=== PATIENT | female | born 1995 | race Caucasian/White ===

== ENCOUNTER → 2022-02-17 | Outpatient (CLI) | payer BC ==
[2022-02-17 11:52] LABS: BASO % 0.4 % (0.0-1.0); EOS # 0.1 10^3/uL (0.0-0.5); EOS % 1.1 % (0.0-3.0); HEMATOCRIT 45.2 % (36.0-47.0); HEMOGLOBIN 14.7 g/dl (12.0-15.5); LYMPH # 2.6 10^3/uL (1.5-5.0); LYMPH % 35.1 % (24.0-44.0); MEAN CORPUSCULAR HEMOGLOBIN 28.3 pg (27.0-33.0); MEAN CORPUSCULAR HGB CONC 32.5 g/dl (32.0-36.5); MEAN CORPUSCULAR VOLUME 87.1 fl (80.0-96.0); MONO # 0.4 10^3/uL (0.0-0.8); MONO % 5.2 % (2.0-8.0); NEUTROPHILS # 4.2 10^3/uL (1.5-8.5); NEUTROPHILS % 57.9 % (36.0-66.0); PLATELET COUNT, AUTOMATED 240 10^3/uL (150-450); RED BLOOD COUNT 5.19 10^6/uL (4.00-5.40); WHITE BLOOD COUNT 7.3 10^3/uL (4.0-10.0)
[2022-02-17 12:01] LABS: HEMOGLOBIN A1c 4.8 % (4.0-6.0)
[2022-02-17 12:11] LABS: ALBUMIN 4.4 G/DL (3.2-5.2); ALKALINE PHOSPHATASE 107 U/L (46-116); ALT/SGPT 16 U/L (7.0-40); AST/SGOT 18 U/L (<34); BILIRUBIN,TOTAL 1.2 MG/DL (0.3-1.2); BLOOD UREA NITROGEN 15 MG/DL (9-23); CALCIUM LEVEL 9.7 MG/DL (8.5-10.1); CARBON DIOXIDE LEVEL 26 MMOL/L (20-31); CHLORIDE LEVEL 103 MMOL/L (98-107); CREATININE FOR GFR 0.75 MG/DL (0.55-1.30); GLOMERULAR FILTRATION RATE > 60.0 (>60); GLUCOSE, FASTING 79 MG/DL (60-100); POTASSIUM SERUM 4.2 MMOL/L (3.5-5.1); SODIUM LEVEL 137 MMOL/L (136-145); TOTAL PROTEIN 8.2 G/DL (5.7-8.2)
[2022-02-17 12:14] LABS: FREE T4 1.27 NG/DL (0.89-1.76); PROLACTIN 3.47 NG/ML; THYROID STIMULATING HORMONE 1.951 uIU/ML (0.55-4.78)
== END ==
LOC: M LAB 10:53
PROVIDERS: ATTEND Registered Nurse
DX: E66.9 Obesity, unspecified (principal)

== ENCOUNTER → 2022-02-23 | Outpatient (REF) | payer BC ==
[2022-02-23 17:24] LABS: GC DNA AMPLIFICATION NEGATIVE (NEGATIVE)
== END ==
LOC: M LAB REF 14:59
PROVIDERS: ATTEND Registered Nurse
DX: Z01.419 Encounter for gynecological examination (general) (routine) without abnormal findings (principal); Z11.3 Encounter for screening for infections with a predominantly sexual mode of transmission; R87.615 Unsatisfactory cytologic smear of cervix
CPT/HCPCS: 87624; 87661; 87810; 87850; G0123

== ENCOUNTER → 2022-11-17 | Outpatient (CLI) | payer BC ==
[2022-11-17 14:14] LABS: HEMATOCRIT 43.3 % (36.0-47.0); HEMOGLOBIN 14.4 g/dl (12.0-15.5); MEAN CORPUSCULAR HEMOGLOBIN 28.3 pg (27.0-33.0); MEAN CORPUSCULAR HGB CONC 33.3 g/dl (32.0-36.5); MEAN CORPUSCULAR VOLUME 85.2 fl (80.0-96.0); PLATELET COUNT, AUTOMATED 230 10^3/uL (150-450); RED BLOOD COUNT 5.08 10^6/uL (4.00-5.40)
[2022-11-17 15:11] LABS: HIV 1&2 SCREEN NEGATIVE (NEGATIVE)
[2022-11-17 15:19] LABS: HEPATITIS C VIRUS ABY INDEX 0.09 INDEX (<0.8)
[2022-11-17 15:26] LABS: GC DNA AMPLIFICATION NEGATIVE (NEGATIVE)
== END ==
LOC: M PLALAB 09:29
PROVIDERS: ATTEND Specialist
DX: Z34.81 Encounter for supervision of other normal pregnancy, first trimester (principal); Z3A.00 Weeks of gestation of pregnancy not specified

== ENCOUNTER → 2022-12-13 | Outpatient (CLI) | payer BC | LOC: M PLALAB 11:04 | PROVIDERS: ATTEND Obstetrics & Gynecology | DX: Z34.81 Encounter for supervision of other normal pregnancy, first trimester (principal) ==

== ENCOUNTER → 2023-01-28 | Outpatient (CLI) | payer BC | LOC: M WHC 12:25 | PROVIDERS: ATTEND Specialist | DX: Z34.02 Encounter for supervision of normal first pregnancy, second trimester (principal) ==

== ENCOUNTER → 2023-03-07 | Outpatient (CLI) | payer BC | LOC: M WHC 07:10 | PROVIDERS: ATTEND Obstetrics & Gynecology | DX: Z36.2 Encounter for other antenatal screening follow-up (principal) ==

== ENCOUNTER → 2023-03-15 | Outpatient (CLI) | payer BC ==
[2023-03-15 14:22] LABS: HEMATOCRIT 38.5 % (36.0-47.0); HEMOGLOBIN 12.5 g/dl (12.0-15.5); MEAN CORPUSCULAR HEMOGLOBIN 29.1 pg (27.0-33.0); MEAN CORPUSCULAR HGB CONC 32.5 g/dl (32.0-36.5); MEAN CORPUSCULAR VOLUME 89.5 fl (80.0-96.0); PLATELET COUNT, AUTOMATED 199 10^3/uL (150-450); WHITE BLOOD COUNT 11.8 10^3/uL (4.0-10.0)
== END ==
LOC: M PLALAB 08:37
PROVIDERS: ATTEND Advanced Practice Midwife
DX: Z34.02 Encounter for supervision of normal first pregnancy, second trimester (principal); Z3A.00 Weeks of gestation of pregnancy not specified
CPT/HCPCS: 36415; 82950; 85027; 86850; 87490; 87590; J2790

== ENCOUNTER → 2023-05-25 | Outpatient (REF) | payer BC | LOC: M PLALAB 08:53 | PROVIDERS: ATTEND Advanced Practice Midwife | DX: Z34.03 Encounter for supervision of normal first pregnancy, third trimester (principal) ==

== ENCOUNTER 2023-06-15 14:15 | Outpatient (CLI) | payer BC ==
[~2023-06-15] VITALS: Ht 157.5 cm; Wt 100.6 kg
[2023-06-15] VITALS (7 sets, daily range): BP systolic 117–125; BP diastolic 63–66; O2SAT 98
[2023-06-15] MEDS ORDERED: PRENTAB9 PO (14:28)
[2023-06-15] MEDS ORDERED: ACET-907 PO (14:28)
[2023-06-15] MEDS ORDERED: HOME MED LIST COMPLETE! XX SCH (14:30)
[2023-06-15 15:33] LABS: HEMATOCRIT 36.4 % (36.0-47.0); HEMOGLOBIN 12.1 g/dl (12.0-15.5); MEAN CORPUSCULAR HEMOGLOBIN 28.5 pg (27.0-33.0); MEAN CORPUSCULAR HGB CONC 33.2 g/dl (32.0-36.5); MEAN CORPUSCULAR VOLUME 85.8 fl (80.0-96.0); PLATELET COUNT, AUTOMATED 165 10^3/uL (150-450); RED BLOOD COUNT 4.24 10^6/uL (4.00-5.40); WHITE BLOOD COUNT 10.8 10^3/uL (4.0-10.0)
[2023-06-15 15:43] LABS: TOTAL PROTEIN,RANDOM URINE 14.8 MG/DL (0.0-14.0)
[2023-06-15 15:45] LABS: URIC ACID 4.5 MG/DL (3.1-7.8)
[2023-06-15 15:47] LABS: LDH LACTATE DEHYDROGENASE 157 U/L (120-246)
[2023-06-15 15:48] LABS: ALT/SGPT 97 U/L (7.0-40); AST/SGOT 37 U/L (<34); BILIRUBIN,TOTAL 0.7 MG/DL (0.3-1.2); CREATININE FOR GFR 0.53 MG/DL (0.55-1.30); GLOMERULAR FILTRATION RATE > 60.0 (>60)
== END 2023-06-15 16:47 | disposition home or self-care (01) ==
LOC: M LDO 14:15
PROVIDERS: ATTEND Obstetrics & Gynecology
DX: O16.3 Unspecified maternal hypertension, third trimester (principal); Z67.11 Type A blood, Rh negative; Z3A.38 38 weeks gestation of pregnancy
CPT/HCPCS: 36415; 59025; 76815; 82247; 82570; 83615; 84156; 84450; 84460; 84550; 85027; G0463

== ENCOUNTER 2023-06-18 10:47 | Outpatient (CLI) | payer BC ==
[~2023-06-18] VITALS: Ht 157.5 cm; Wt 99.7 kg
[~2023-06-18 10:47] MED LIST: ACET-907 PO; PRENTAB9 PO
[2023-06-18 11:09] VITALS: BP 132/73; O2SAT 97
[2023-06-18] MEDS ORDERED: HOME MED LIST COMPLETE! XX SCH (11:15)
[2023-06-18 11:24] VITALS: BP 125/71
[2023-06-18 11:26] VITALS: BP 126/73
[2023-06-18 11:39] VITALS: BP 123/67
[2023-06-18 11:48] LABS: HEMATOCRIT 38.2 % (36.0-47.0); HEMOGLOBIN 12.9 g/dl (12.0-15.5); MEAN CORPUSCULAR HEMOGLOBIN 28.7 pg (27.0-33.0); MEAN CORPUSCULAR HGB CONC 33.8 g/dl (32.0-36.5); MEAN CORPUSCULAR VOLUME 84.9 fl (80.0-96.0); PLATELET COUNT, AUTOMATED 166 10^3/uL (150-450)
[2023-06-18 11:54] VITALS: BP 122/71
[2023-06-18 12:09] VITALS: BP 121/71
[2023-06-18 12:22] LABS: ALBUMIN 2.6 G/DL (3.2-5.2); ALKALINE PHOSPHATASE 220 U/L (46-116); ALT/SGPT 124 U/L (7.0-40); AST/SGOT 58 U/L (<34); BLOOD UREA NITROGEN 8 MG/DL (9-23); CALCIUM LEVEL 8.9 MG/DL (8.5-10.1); CARBON DIOXIDE LEVEL 22 MMOL/L (20-31); CHLORIDE LEVEL 106 MMOL/L (98-107); CREATININE FOR GFR 0.53 MG/DL (0.55-1.30); GLOMERULAR FILTRATION RATE > 60.0 (>60); GLUCOSE, FASTING 69 MG/DL (60-100); SODIUM LEVEL 136 MMOL/L (136-145); TOTAL PROTEIN 6.4 G/DL (5.7-8.2)
[2023-06-18 12:33] LABS: CREATININE,RANDOM URINE 18.7 MG/DL; TOTAL PROTEIN,RANDOM URINE < 6.0 MG/DL (0.0-14.0)
[2023-06-18 13:16] LABS: INR 0.99; PROTHROMBIN TIME 12.8 SECONDS (12.5-14.5)
== END 2023-06-18 15:39 | disposition home or self-care (01) ==
LOC: M LDO 10:47
PROVIDERS: ATTEND Obstetrics & Gynecology
DX: O16.3 Unspecified maternal hypertension, third trimester (principal); O36.0139 Maternal care for anti-D [Rh] antibodies, third trimester, other fetus; O26.613 Liver and biliary tract disorders in pregnancy, third trimester; K76.0 Fatty (change of) liver, not elsewhere classified; Z3A.39 39 weeks gestation of pregnancy
CPT/HCPCS: 36415; 59025; 76705; 80053; 82570; 84156; 85027; 85610; G0463

== ENCOUNTER → 2023-06-20 | Outpatient (CLI) | payer BC ==
[2023-06-20 11:20] LABS: HEMATOCRIT 40.1 % (36.0-47.0); HEMOGLOBIN 12.9 g/dl (12.0-15.5); MEAN CORPUSCULAR HEMOGLOBIN 28.5 pg (27.0-33.0); MEAN CORPUSCULAR HGB CONC 32.2 g/dl (32.0-36.5); MEAN CORPUSCULAR VOLUME 88.5 fl (80.0-96.0); PLATELET COUNT, AUTOMATED 165 10^3/uL (150-450); RED BLOOD COUNT 4.53 10^6/uL (4.00-5.40)
[2023-06-20 11:47] LABS: ALBUMIN 2.6 G/DL (3.2-5.2); ALKALINE PHOSPHATASE 217 U/L (46-116); ALT/SGPT 135 U/L (7.0-40); AST/SGOT 42 U/L (<34); BILIRUBIN,TOTAL 0.9 MG/DL (0.3-1.2); BLOOD UREA NITROGEN 10 MG/DL (9-23); CALCIUM LEVEL 8.7 MG/DL (8.5-10.1); CARBON DIOXIDE LEVEL 26 MMOL/L (20-31); CHLORIDE LEVEL 105 MMOL/L (98-107); CREATININE FOR GFR 0.72 MG/DL (0.55-1.30); GLOMERULAR FILTRATION RATE > 60.0 (>60); GLUCOSE, FASTING 71 MG/DL (60-100); POTASSIUM SERUM 4.3 MMOL/L (3.5-5.1); SODIUM LEVEL 137 MMOL/L (136-145); TOTAL PROTEIN 6.4 G/DL (5.7-8.2); TOTAL PROTEIN,RANDOM URINE 21.2 MG/DL (0.0-14.0)
[2023-06-20 11:52] LABS: CREATININE,RANDOM URINE 200.1 MG/DL
== END ==
LOC: M PLALAB 08:15
PROVIDERS: ATTEND Obstetrics & Gynecology
DX: K76.0 Fatty (change of) liver, not elsewhere classified (principal)

== ENCOUNTER 2023-06-30 21:40 | Inpatient (IN) | payer BC ==
[~2023-06-30] VITALS: Ht 157.5 cm; Wt 100.6 kg
[2023-06-30 21:58] VITALS: BP 131/73
[2023-06-30] MEDS ORDERED: LIDOCAINE 1% MDV 20ML VIAL INFIL PRN (22:40)
[2023-06-30] MEDS ORDERED: OXYTOCIN DRIP 30 UNITS in IV 1 EA IV PRN (22:40)
[2023-06-30] MEDS ORDERED: HOME MED LIST COMPLETE! XX SCH (23:10)
[2023-06-30 23:15] LABS: HEMATOCRIT 37.7 % (36.0-47.0); HEMOGLOBIN 12.6 g/dl (12.0-15.5); MEAN CORPUSCULAR HEMOGLOBIN 28.6 pg (27.0-33.0); MEAN CORPUSCULAR HGB CONC 33.4 g/dl (32.0-36.5); MEAN CORPUSCULAR VOLUME 85.7 fl (80.0-96.0); PLATELET COUNT, AUTOMATED 163 10^3/uL (150-450); WHITE BLOOD COUNT 10.4 10^3/uL (4.0-10.0)
[2023-07-01] VITALS (40 sets, daily range): BP systolic 103–195; BP diastolic 55–107; TEMP 97.2; O2SAT 96
[2023-07-01 00:46] LABS: HEPATITIS C VIRUS ABY INDEX < 0.02 INDEX (<0.8)
[2023-07-01] MEDS: OXYTOCIN DRIP 30 UNITS in IV 1 EA IV SCH ×2 (08:43→23:12)
[2023-07-01] MEDS: LR 1,000 ML IV SCH ×3 (11:51→23:12)
[2023-07-01] MEDS ORDERED: ePHEDrine SULFATE 25 MG/5 ML(5MG/ML) SYRINGE IVP PRN (12:55)
[2023-07-01] MEDS ORDERED: LR 500 ML IV PRN (12:55)
[2023-07-01] MEDS ORDERED: ONDANSETRON 4MG 2ML VIAL IV PRN ×3 (12:55→21:30)
[2023-07-01] MEDS ORDERED: diphenhydrAMINE 50MG/ML VIAL IV PRN ×2 (12:55→21:00)
[2023-07-01] MEDS ORDERED: EPIDURAL/PCA KEYS XX PRN (12:55)
[2023-07-01] MEDS ORDERED: NALOXONE INJ 0.4MG/1ML VIAL IV PRN ×3 (12:55→21:00)
[2023-07-01] MEDS ORDERED: FENTANYL 2MCG/ML ROPIVACAINE 0.2% IN 0.9% NACL 100ML IVBAG As Ordered ONE (12:58)
[2023-07-01] MEDS: FENTANYL/ROPIVACAINE/NACL BAG 100 ML EPIDURAL SCH (14:01)
[2023-07-01] MEDS: ceFAZolin SOD 2 GM in IV 1 EA IV ONE (19:55)
[2023-07-01] MEDS: AZITHROMYCIN INJ 500 MG, VIAL MATE ADAPTER 1 EACH in NS 250 ML IV ONE (20:11)
[2023-07-01] MEDS: BICITRA 30ML SOLN UDC PO ONE (20:11)
[2023-07-01] MEDS ORDERED: OXYTOCIN 30UNITS IN 0.9% NaCl 500ML IV BAG As Ordered ONE (20:43)
[2023-07-01] MEDS ORDERED: ONDANSETRON 4MG 2ML VIAL As Ordered ONE (20:43)
[2023-07-01] MEDS ORDERED: MORPHINE PRES-FREE INJ 10 MG/10 ML VIAL As Ordered ONE (20:44)
[2023-07-01] MEDS ORDERED: KETOROLAC 60MG 2ML VIAL As Ordered ONE (20:51)
[2023-07-01] MEDS ORDERED: ACETAMINOPHEN 1000MG 100ML IV BAG As Ordered ONE (20:55)
[2023-07-01] MEDS: SLF 3 ML SYR IV SCH (21:00)
[2023-07-01] MEDS ORDERED: METOCLOPRAMIDE INJ 10MG/2ML VIAL IV PRN (21:00)
[2023-07-01] MEDS ORDERED: MORPHINE 2 MG/ML 1ML VIAL IV PRN (21:00)
[2023-07-01] MEDS ORDERED: MOM 30ML SUSPENSION UDC PO PRN (21:30)
[2023-07-01] MEDS ORDERED: CALCIUM CARBONATE 500 MG CHEW U/D PO PRN (21:30)
[2023-07-01] MEDS ORDERED: METHYLERGONOVINE MALEATE 0.2 MG TAB PO PRN (21:30)
[2023-07-01] MEDS ORDERED: PERCOCET 5MG/325MG TAB PO PRN (21:30)
[2023-07-02] VITALS (10 sets, daily range): BP systolic 106–138; BP diastolic 55–75; O2SAT 96–99
[2023-07-02] MEDS: KETOROLAC 30 MG/ML 1ML VIAL IV SCH (02:56)
[2023-07-02 07:01] LABS: HEMATOCRIT 29.8 % (36.0-47.0); MEAN CORPUSCULAR HGB CONC 33.9 g/dl (32.0-36.5); MEAN CORPUSCULAR VOLUME 85.6 fl (80.0-96.0); PLATELET COUNT, AUTOMATED 147 10^3/uL (150-450); RED BLOOD COUNT 3.48 10^6/uL (4.00-5.40); WHITE BLOOD COUNT 15.4 10^3/uL (4.0-10.0)
[2023-07-02 07:05] LABS: HEMOGLOBIN 10.1 g/dl (12.0-15.5)
[2023-07-02] MEDS: DOCUSATE SODIUM 100MG CAPSULE PO SCH (09:39)
[2023-07-02] MEDS: PRENATAL VITAMINS CHEWABLE TABLET PO SCH (09:39)
[2023-07-02] MEDS: FERROUS SULFATE 325MG TAB PO SCH (09:39)
[2023-07-02] MEDS: RHO(D) IMMUNE GLOBULIN/MALTOSE 500MCG(2500IU)/2.2ML VIAL (WINRHO) IM SCH (15:28)
[2023-07-02] MEDS: PERCOCET 5MG/325MG TAB PO PRN (21:07)
[2023-07-02] MEDS: diphenhydrAMINE 50MG/ML VIAL IV PRN (23:18)
[2023-07-02] MEDS: IBUPROFEN 800 MG TAB PO SCH (23:19)
[2023-07-03 02:00] VITALS: BP 129/70; O2SAT 97
[2023-07-03 06:00] VITALS: BP 113/66; O2SAT 98
[2023-07-03] MEDS: MEASLES,MUMPS,RUBELLA VACCINE INJ (MMR-II) SC.IMMUN ONE (07:15)
[2023-07-03] MEDS ORDERED: IBUP80TA PO (09:27)
[2023-07-03] MEDS ORDERED: COLA100C5 PO (09:27)
[2023-07-03] MEDS: SIMETHICONE 80MG CHEW TAB PO PRN (14:24)
== END 2023-07-03 14:45 | disposition home or self-care (01) | DRG 540 ==
LOC: M LDO 21:40 → M LDI 22:25 → M OBS 07-01 23:01
PROVIDERS: ADMIT Specialist; ATTEND Specialist
PROC: 10907ZC Drainage of Amniotic Fluid, Therapeutic from Products of Conception, Via Natural or Artificial Opening (ICD-10-PCS; 2023-07-01)
PROC: 10D00Z1 Extraction of Products of Conception, Low, Open Approach (ICD-10-PCS; principal; 2023-07-01 19:57)
DX: O62.0 Primary inadequate contractions (principal); O48.0 Post-term pregnancy; Z37.0 Single live birth; Z3A.40 40 weeks gestation of pregnancy

== ENCOUNTER → 2023-11-07 | Outpatient (REF) | payer BC ==
[~2023-11-07] MED LIST changes: +COLA100C5 PO; +IBUP80TA PO
== END ==
LOC: M PLALAB 08:01
PROVIDERS: ATTEND Obstetrics & Gynecology
DX: Z12.4 Encounter for screening for malignant neoplasm of cervix (principal)

== ENCOUNTER → 2024-11-09 | Outpatient (REF) | payer BC | LOC: M SFHCWAGY 10:29 | PROVIDERS: ATTEND Obstetrics & Gynecology | DX: Z12.4 Encounter for screening for malignant neoplasm of cervix (principal) ==